=== PATIENT | female | born 1960 | race Two or more races ===

== ENCOUNTER 2016-03-25 20:11 | Emergency (ER) | payer OTHER | END 2016-03-25 21:50 | disposition home or self-care (01) | LOC: ED 20:11 | DX: J10.1 Influenza due to other identified influenza virus with other respiratory manifestations (principal); E11.9 Type 2 diabetes mellitus without complications; E78.00 Pure hypercholesterolemia, unspecified; I10 Essential (primary) hypertension; E78.5 Hyperlipidemia, unspecified ==